=== PATIENT | male | born 1950 | race Caucasian/White ===

== ENCOUNTER 2016-08-01 21:01 | Emergency (ER) | payer OTHER | END 2016-08-01 21:54 | disposition left against medical advice (07) | LOC: UCCORT 21:01 | DX: Z45.2 Encounter for adjustment and management of vascular access device (principal); Z53.21 Procedure and treatment not carried out due to patient leaving prior to being seen by health care provider ==

== ENCOUNTER 2018-02-28 09:41 | Emergency (ER) | payer MEDICARE ==
[2018-02-28 11:58] VITALS: BP 139/84
--- NOTE | 2018-02-28 12:16 | UC ---
Skin Complaint HPI - HPI Summary HPI Summary: The patient is a 67-year-old male with diabetes who presents here with right leg swelling and redness and slight discomfort about 5-7 days after slipping going up stairs and sustaining a small laceration and hematoma to his right fatima. He is currently on doxycycline twice a day for infections of both knees. He is unsure of the bacteria that is being treated for. Allergic to penicillins but has been able to tolerate Keflex. - History of Current Complaint Chief Complaint: UCLowerExtremity Time Seen by Provider: 02/28/18 11:55 Stated Complaint: RT KNEE SKIN COMPLAINT Onset/Duration: Sudden Onset, Lasting Days Timing: Constant Onset Severity: Mild Current Severity: Moderate Pain Intensity: 5 Pain Scale Used: 0-10 Numeric Location: Discrete Character: Swelling, Redness, Painful Aggravating Factor(s): Nothing Related History: Trauma - Allergy/Home Medications Allergies/Adverse Reactions: Allergies Allergy/AdvReac Type Severity Reaction Status Date / Time Penicillins Allergy Severe tongue Verified 02/28/18 11:59 swelling/hives Home Medications: Home Medications DOXYcycline CAP(*) [DOXYcycline 100MG CAP(*)] 100 mg PO BID 02/28/18 [History Confirmed 02/28/18] Insulin GLARGINE(*) [Lantus(*)] 45 unit BEDTIME 02/28/18 [History Confirmed ] Metoprolol Tartrate TAB* [Lopressor TAB*] 50 mg PO DAILY 02/28/18 [History Confirmed 02/28/18] [place]-3 Fatty Acids (Nf) [Fish Oil (NF)] 1,000 mg PO DAILY 02/28/18 [History Confirmed 02/28/18] Ubidecarenone [Coq-10 Tr] 100 mg PO DAILY 02/28/18 [History Confirmed 02/28/18] cloNIDine TAB* [Catapres 0.1 MG TAB*] 0.2 mg PO BID 02/28/18 [History Confirmed 02/28/18] glipiZIDE TAB* [Glucotrol TAB*] 10 mg PO BID 02/28/18 [History Confirmed ] Review of Systems All Other Systems Reviewed And Are Negative: Yes Musculoskeletal: Positive: Edema Is Patient Immunocompromised?: Yes PMH/Surg Hx/FS Hx/Imm Hx Previously Healthy: Yes Endocrine History: Diabetes, Dyslipidemia Cardiovascular History: Hypertension - Surgical History Surgical History: Yes Surgery Procedure, Year, and Place: Bilateral Carpal Tunnel, 2012, [place]; Left TKA with follow up infection surgeries; Left Knee Cartiladge, 1977; Tonsillectomy, 1957; Inguinal Herniorrhaphy, 1956; left rotator cuff 10/2017 - Family History Known Family History: Positive: Hypertension, Diabetes - Social History Alcohol Use: Rare Substance Use Type: None Smoking Status (MU): Never Smoked Tobacco - Immunization History Most Recent Influenza Vaccination: Not the Physical Exam Triage Information Reviewed: Yes Appearance: Well-Appearing, No Pain Distress, Well-Nourished Vital Signs: Initial Vital Signs Temp 97.6 F 02/28/18 11:53 Pulse 71 02/28/18 11:53 Resp 18 02/28/18 11:53 BP 139/84 02/28/18 11:53 Pulse Ox 97 02/28/18 11:53 Vital Signs Reviewed: Yes Eyes: Positive: Conjunctiva Clear ENT: Positive: Hearing grossly normal. Negative: Nasal congestion, Nasal drainage, Trismus, Muffled voice, Hoarse voice Neck: Positive: Supple, Nontender Respiratory: Positive: Lungs clear, Normal breath sounds, No respiratory distress, No accessory muscle use Cardiovascular: Positive: RRR, No Murmur Musculoskeletal: Positive: Strength Intact, ROM Intact Neurological: Positive: Alert Psychological Exam: Normal Skin Exam: Other - see image Course/Dx - Diagnoses Provider Diagnoses: cellulitis right fatima Discharge - Sign-Out/Discharge Documenting (check all that apply): Patient Departure All imaging exams completed and their final reports reviewed: No Studies - Discharge Plan Condition: Stable Disposition: HOME Prescriptions: Cephalexin CAP* [Keflex CAP*] 500 mg PO QID #28 cap Patient Education Materials: Cellulitis (ED) Referrals: Isak Garza MD [Primary Care Provider] - 3 Days Additional Instructions: culture pending - Billing Disposition and Condition Condition: STABLE Disposition: Home Images Front/Back of Body, Lg (Bacon): 1 - red/swollen/central <5mm open area
--- NOTE | 2018-03-04 07:39 | UC ---
- Progress Note Progress Note: Reviewed cx report 02/28/18, + Pseudomonnas and + normal christos. Sens noted in [employer]. GFR > 60 09/25/2017. Reviewed meds / allergies. RN to call pt - switch to ciprofloxacin. Rx e-scribed. Stop doxycycline, stop cephalexin; and start ciprofloxacin. Drink lots of water, avoid prolonged sun exposure. Do not take ciprofloxacin within 2 hours of milk / antacid / calcium products. Check blood sugars frequently throughout the day. Schedule f/u with PCP for recheck next week. Seek medical attention sooner for worse or new problems in the meantime. Course/Dx - Diagnoses Provider Diagnoses: Wound cellulitis Discharge - Sign-Out/Discharge Documenting (check all that apply): Post-Discharge Follow Up All imaging exams completed and their final reports reviewed: No Studies - Discharge Plan Condition: Stable Disposition: HOME Patient Education Materials: Cellulitis (ED) Referrals: Isak Garza MD [Primary Care Provider] - 3 Days Additional Instructions: culture pending - Billing Disposition and Condition Condition: STABLE Disposition: Home
== END 2018-02-28 12:32 | disposition home or self-care (01) ==
LOC: UCCORT 09:41
DX: L03.115 Cellulitis of right lower limb (principal); S81.811D Laceration without foreign body, right lower leg, subsequent encounter; S80.11XD Contusion of right lower leg, subsequent encounter; E11.9 Type 2 diabetes mellitus without complications; I10 Essential (primary) hypertension; Z88.0 Allergy status to penicillin; Z79.4 Long term (current) use of insulin; Z79.899 Other long term (current) drug therapy; Z96.652 Presence of left artificial knee joint; W01.0XXD Fall on same level from slipping, tripping and stumbling without subsequent striking against object, subsequent encounter
CPT/HCPCS: 87070; 87077; 87186; 87205; 87640; 87641; 99212; G0463